=== PATIENT | male | born 1960 | race Two or more races ===

== ENCOUNTER 2016-06-02 08:41 | Emergency (ER) | payer OTHER ==
[~2016-06-02] VITALS: Ht 177.8 cm; Wt 90.7 kg
[2016-06-02] MEDS ORDERED: ONDANSETRON HCL/PF 4 MG/2 ML VIAL IV ONE ×2 (09:00→11:00)
[2016-06-02] MEDS ORDERED: HYDROMORPHONE 1 MG/1 ML DISP.SYRIN IV ONE ×2 (09:00→11:00)
[2016-06-02 09:03] VITALS: BP 137/51
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
--- NOTE | 2016-06-02 09:08 | NUR ---
C-spine cleared by ER MD. Backboard removed. Patient able to move all extremities before and after backboard removal.
[2016-06-02] MEDS ORDERED: HYDROMORPHONE 1 MG/1 ML DISP.SYRIN ONE (09:09)
[2016-06-02] MEDS ORDERED: ONDANSETRON HCL/PF 4 MG/2 ML VIAL ONE ×2 (09:09→10:47)
[2016-06-02 09:14] LABS: BASOPHILS % (AUTO) 0.5 % (0.0-2.0); EOSINOPHILS # (AUTO) 0.2 /CMM (0.0-0.7); EOSINOPHILS % (AUTO) 1.6 % (0.0-6.0); HEMATOCRIT 42 % (39-51); HEMOGLOBIN 14.3 g/dL (13.5-17.5); LYMPHOCYTES # (AUTO) 2.9 /CMM (0.8-4.8); LYMPHOCYTES % (AUTO) 27.6 % (20.0-44.0); MEAN CORPUSCULAR HEMOGLOBIN 31 PG (26.0-33.0); MEAN CORPUSCULAR HGB CONC 34 g/dl (31.0-36.0); MEAN CORPUSCULAR VOLUME 89 fL (80-96); MONOCYTES # (AUTO) 0.7 /CMM (0.1-1.30); MONOCYTES % (AUTO) 6.5 % (2.0-12.0); NEUTROPHILS # (AUTO) 6.6 /CMM (1.8-8.9); NEUTROPHILS % (AUTO) 63.8 % (43.0-81.0); PLATELET COUNT (AUTO) 260 /CMM (150-450); RED BLOOD CELL COUNT(AUTO) 4.68 MIL/uL (4.5-6.0); WHITE BLOOD COUNT (AUTO) 10.4 K/uL (4.3-11.0)
--- NOTE | 2016-06-02 09:15 | NUR ---
xray in progress at BS
[2016-06-02 09:24] LABS: CALCIUM, SERUM 8.3 mg/dL (8.5-10.1); CREATININE 0.9 mg/dL (0.6-1.3); POTASSIUM 3.6 mmol/L (3.5-5.1)
[2016-06-02 09:30] LABS: ALBUMIN 3.6 g/dL (3.4-5.0); BILIRUBIN,DIRECT 0.1 mg/dL (0.0-0.2); BILIRUBIN,TOTAL 0.8 mg/dL (0.2-1.0); TOTAL PROTEIN, SERUM 7.4 g/dL (6.4-8.2)
[2016-06-02] MEDS ORDERED: IV NS 0.9% 250 ML IV ONE (09:35)
[2016-06-02] MEDS ORDERED: CT SWABBABLE VALVE TRANS SET 1 EA INFUS.SET MC ONE (09:36)
[2016-06-02] MEDS ORDERED: IOHEXOL-300 100 ML VIAL IV ONE (09:36)
--- NOTE | 2016-06-02 09:48 | NUR ---
PATIENT TRANSPORTED FOR CT VIA GURNEY.
--- NOTE | 2016-06-02 10:37 | NUR ---
PRESENTED CASE TO SARAH CHARGE NURSE AT [facility] FOR [facility] LEVEL OF CARE TRANSFER, DOC TO DOC COMPLETED WITH DR. JAMES AND DR. LEIJA
[2016-06-02] MEDS ORDERED: HYDROMORPHONE INJ 2 MG/ML DISP.SYRIN ONE (10:47)
--- NOTE | 2016-06-02 11:05 | NUR ---
Patient TRANSPORTED to [facility] in stable condition. Written and verbal after care instructions given. Patient AND EMT verbalizeD understanding of instruction.
== END 2016-06-02 11:23 | disposition short-term general hospital (02) ==
LOC: ER 08:43
DX: S32.011A Stable burst fracture of first lumbar vertebra, initial encounter for closed fracture (principal); S32.2XXA Fracture of coccyx, initial encounter for closed fracture; T75.4XXA Electrocution, initial encounter; S30.0XXA Contusion of lower back and pelvis, initial encounter; S20.229A Contusion of unspecified back wall of thorax, initial encounter; S00.512A Abrasion of oral cavity, initial encounter; W11.XXXA Fall on and from ladder, initial encounter; Y93.89 Activity, other specified; Y92.89 Other specified places as the place of occurrence of the external cause; Y99.8 Other external cause status
CPT/HCPCS: 36415; 71260; 72193; 74160; 80048; 80076; 82550; 85025; 96374 ×2; 96375; 96376; 99285; A4606; A6403; J1170 ×2; J2405 ×2; J7050; L0172; Q9967; Z7610